=== PATIENT | male | born 1980 | race Caucasian/White ===

== ENCOUNTER 2024-05-30 20:32 | Emergency (ER) | payer BC, SELFPAY ==
[2024-05-30 20:42] VITALS: BP 115/68; PULSE 58; RESP 16; TEMP 36.9; O2SAT 99; BMI 26.2
[2024-05-30 21:27] LABS: Strep Grp A by PCR Rapid Negative (Negative)
--- NOTE | 2024-05-30 21:40 | ED.RECABL ---
HPI - Recheck/Abnormal Lab/Rx General Chief Complaint: Recheck/Abnormal Lab/Rx Stated Complaint: check for strep Time Seen by Provider: 05/30/24 21:40 Source: patient Mode of arrival: Ambulatory Limitations: no limitations History of Present Illness HPI narrative: 43-year-old male no reported medical problems who presents with concern for strep. Patient does not have symptoms but 2 children and their family they have been traveling with have tested positive. No other complaints currently. Patient has allergies to penicillins, cefprozil, ofloxacin, sulfa and tetracycline. Per patient can tolerate amoxicillin. Related Data Previous Rx's Medication Instructions Recorded amoxicillin 500 mg tablet 500 mg PO Q8H #30 tabs 05/30/24 Allergies Allergy/AdvReac Type Severity Reaction Status Date / Time cefprozil [From Cefzil] Allergy Rash Verified 05/30/24 20:47 ofloxacin [From Floxin] Allergy Rash Verified 05/30/24 20:47 Penicillins Allergy Hives Verified 05/30/24 20:47 Sulfa (Sulfonamide Allergy Hives Verified 05/30/24 20:47 Antibiotics) tetracycline Allergy Rash Verified 05/30/24 20:47 Review of Systems Review of Systems ROS Unobtainable: All systems reviewed & are unremarkable except as noted in HPI and below Patient History Social History Smoking Status: Never smoker Smoking Status: Never smoker Substance Use Type: does not use Exam Narrative Exam Narrative: GEN: well nourished, well appearing male, alert and oriented x 3, patient appears to be in mild distress. HEENT: Atraumatic, pupils are equal round reactive to light, extraocular movements are intact, nares are clear, TMs are clear with no fluid, there is no conjunctival pallor. Throat is clear without any exudates, erythema, tonsillar enlargement or uvular deviation, no cervical lymphadenopathy HEART: Regular rate and rhythm without murmur, clicks, rubs. LUNGS:Lungs clear to auscultation, no wheezes, rales, crackles, chest moves symmetrically ABD:bowel sounds normal, soft, non-tender, no guarding, rebound, rigidity, no masses noted, no hepatosplenomegaly MSCL: full range of motion, normal gait NEURO:CN 2-12 intact, sensation normal SKIN: No rash, erythema or other skin changes Initial Vital Signs Initial Vital Signs: Vital Signs Temperature 98.5 F 05/30/24 20:42 Pulse Rate 58 L 05/30/24 20:42 Respiratory Rate 16 05/30/24 20:42 Blood Pressure 115/68 05/30/24 20:42 Pulse Oximetry 99 05/30/24 20:42 Oxygen Delivery Method Room Air 05/30/24 20:42 Course Orders Ordered: ED Orders 05/30/24 20:50 Strep Grp A by PCR Rapid Stat Vital Signs Vital signs: Vital Signs - 8 hr 05/30/24 20:42 05/30/24 22:34 Temperature 98.5 F 98.4 F Pulse Rate 58 L 67 Respiratory Rate 16 18 Blood Pressure 115/68 133/65 Pulse Oximetry 99 98 Oxygen Delivery Method Room Air Room Air MDM - Recheck/Abnormal Lab/Rx Lab Data Labs: Lab Results 05/30/24 Range/Units 20:50 Group A Strep (PCR) Negative (Negative) MDM Narrative Medical decision making narrative: Rapid strep is negative multiple family members have been positive. [place] so we will give prescription to start if they develop symptoms. Discharge Plan Departure Patient Disposition: Home Clinical Impression: Patient request for diagnostic testing Activity Restrictions/Additional Instructions: You are negative on your strep test today. If you develop symptoms multiple family members who were positive can start the antibiotic that was prescribed. Prescription is printed and included in your discharge papers. Prescriptions: New amoxicillin 500 mg tablet 500 mg PO Q8H Qty: 30 0RF Stand Alone Forms: Patient Portal/API
[2024-05-30 22:34] VITALS: BP 133/65; PULSE 67; RESP 18; TEMP 36.9; O2SAT 98
== END 2024-05-30 22:36 | disposition home or self-care (01) ==
PROVIDERS: Emergency Provider Emergency Medicine
DX: Z71.1 Person with feared health complaint in whom no diagnosis is made (principal)
CPT/HCPCS: 87651; 99281; 99282